=== PATIENT | female | born 1965 | race Caucasian/White ===

== ENCOUNTER 2022-09-04 22:04 | Emergency (ER) | payer BC ==
[2022-09-04] MEDS ORDERED: Lidocaine 1% 5 ML VIAL INJECT ONE (23:22)
[2022-09-04] MEDS ORDERED: Diphtheria,Pertussis(Acell),Tetanus Vaccine 0.5 ML Syringe IM ONE (23:22)
[2022-09-04] MEDS ORDERED: Bacitracin Oint 1 GM U/D Packet TOP ONE (23:22)
== END 2022-09-05 00:18 | disposition home or self-care (01) ==
LOC: DL.ED 22:04
DX: S81.012A Laceration without foreign body, left knee, initial encounter (principal); Z23 Encounter for immunization; W18.30XA Fall on same level, unspecified, initial encounter; W26.8XXA Contact with other sharp object(s), not elsewhere classified, initial encounter
CPT/HCPCS: 12002; 90471; 90715; 99283; A9270; J3490